=== PATIENT | male | born 1970 | race Caucasian/White ===

== ENCOUNTER 2016-11-23 16:44 | Observation (INO) | payer SELFPAY ==
[2016-11-23] MEDS ORDERED: Aspirin Low Dose CHEW TAB* 81 MG PO ONE (17:28)
[2016-11-23] MEDS ORDERED: NS 0.9% 1000 ML* 2,000 ML IV ONE (17:28)
[2016-11-23] MEDS ORDERED: Diltiazem IV* 5 MG/ML 5 ML VIAL (for loading dose/IV Push) (25 MG) IV PUSH ONE (17:28)
[2016-11-23] MEDS ORDERED: Diltiazem DRIP* 100 MG/100 ML ADDV.BAG IVPB ONE (17:28)
--- NOTE | 2016-11-23 18:11 | RAD ---
INDICATION: Tachycardia. COMPARISON: There are no prior studies available for comparison. TECHNIQUE: A portable view of the chest was obtained. FINDINGS: Cardiac and mediastinal contours appear to be within normal limits. The lungs are clear. No pleural effusion is seen. IMPRESSION: NO EVIDENCE FOR ACUTE DISEASE.
[2016-11-23] MEDS ORDERED: NS 0.9% 1000 ML* 1,000 ML IV ONE (18:23)
[2016-11-23 18:40] LABS: Hematocrit 49 % (42-52); Hemoglobin 16.7 g/dl (14.0-18.0); Mean Corpuscular HGB Conc 34 g/dl (31-36); Mean Corpuscular Hemoglobin 31 pg (27-31); Mean Corpuscular Volume 91 fL (80-94); Mean Platelet Volume 10 um3 (7.4-10.4); Red Blood Count 5.46 10^6/ul (4.0-5.4); Red Cell Distribution Width 14 % (10.5-15); White Blood Count 10.1 10^3/ul (3.5-10.8)
[2016-11-23 18:58] LABS: Albumin 4.2 g/dL (3.2-5.2); BUN/Creatinine Ratio 19.3 (8-20); Calcium 9.5 mg/dL (8.6-10.3); EGFR African American 93.7 (>60); EGFR Non-African American 72.8 (>60); Globulin 3.6 g/dL (2-4); Magnesium 2.2 mg/dL (1.9-2.7); Potassium 4.2 mmol/L (3.5-5.0); Total Bilirubin 0.7 mg/dL (0.2-1.0); Total Protein 7.8 g/dL (6.4-8.9)
[2016-11-23 18:59] LABS: Troponin I 0.01 ng/mL (<0.04)
[2016-11-23 19:23] LABS: TSH (Thyroid Stimulating Horm) 1.29 mcIU/mL (0.34-5.60)
[2016-11-23] MEDS ORDERED: Metoprolol Tartrate TAB* 25 MG PO ONE (19:38)
--- NOTE | 2016-11-23 19:57 | ED ---
Eliud Anton Billy, scribed for Brian Fleming MD on 11/23/16 at 1721 . Palpitations / Dysrhythmia - HPI Summary HPI Summary: Patient is a 46 year-old male coming to [facility] presenting with palpitations for the last 2 days. He was at rest during onset. Patient states that his heart feels fast and irregular. He also describes near-syncopal and lightheaded sensation. His symptoms appear to be worse with exertion. He also has had several intermittent, left anterior chest pain lasting several seconds. Denies any SOB. Two days ago, he had a democrat and consumed a large amount of alcohol. Denies any previous similar symptoms. Denies any recent illness or weight changes. - History of Current Complaint Chief Complaint: EDDysrhythmPalp Time Seen by Provider: 11/23/16 17:11 Hx Obtained From: Patient Onset/Duration: Gradual Onset, Lasting Days, Still Present Timing: Intermittent Episodes Lasting: Severity Initially: Moderate Severity Currently: Moderate Character: Fast, Irregular Aggravating: Exertion Alleviating: Rest Associated Signs & Symptoms: Lightheadedness, Chest Pain - Allergy/Home Medications Allergies/Adverse Reactions: Allergies Allergy/AdvReac Type Severity Reaction Status Date / Time Penicillins Allergy Unknown Verified 11/23/16 17:24 Reaction Details PMH/Surg Hx/FS Hx/Imm Hx Endocrine/Hematology History: Denies: Hx Diabetes Cardiovascular History: Reports: Other Cardiovascular Problems/Disorders - mitral valve prolapse Denies: Hx Coronary Artery Disease, Hx Hypercholesterolemia, Hx Hypertension Infectious Disease History: No Infectious Disease History: Denies: Traveled Outside the [place] in Last 30 Days - Family History Known Family History: Positive: Cardiac Disease - brother had NV at age 47 - Social History Occupation: Employed Full-time - [employer] Alcohol Use: Occasionally Substance Use Type: Reports: None Smoking Status (MU): Former Smoker Review of Systems Negative: Sore Throat, Ear Ache Positive: Palpitations, Chest Pain Negative: Shortness Of Breath, Cough Negative: Abdominal Pain, Vomiting, Diarrhea, Nausea Negative: Edema All Other Systems Reviewed And Are Negative: Yes Physical Exam - Summary Physical Exam Summary: The patient is well-nourished in no acute distress and in no acute pain. The skin is warm and skin color reflects adequate perfusion. Good skin turgor. Mildly diaphoretic. HEENT: The head is normocephalic and atraumatic. The pupils are equal and reactive. The conjunctivae are clear and without drainage. Nares are patent and without drainage. Mouth reveals moist mucous membranes and the throat is without erythema and exudate. The external ears are intact. The ear canals are patent and without drainage. The tympanic membranes are intact. Neck is supple with full range of motion and non-tender. There are no carotid bruits. There is no neck vein distension. Respiratory: Chest is non-tender. Lungs are clear to auscultation and breath sounds are symmetrical and equal. Cardiovascular: Heart is tachycardic and irregular. There is no murmur or rub auscultated. There is no peripheral edema and pulses are symmetrical and equal. Abdomen: The abdomen is soft and non-tender. There are normal bowel sounds heard in all four quadrants and there is no organomegaly palpated. Musculoskeletal: There is no back pain noted. Extremities are non-tender with full range of motion. There is good capillary refill. There is no peripheral edema or calf tenderness elicited. Neurological: Patient is alert and oriented to person, place and time. The patient has symmetrical motor strength in all four extremities. Psychiatric: The patient has an appropriate affect and does not exhibit any anxiety or depression. Triage Information Reviewed: Yes Vital Signs On Initial Exam: Initial Vitals Temp Pulse Resp BP Pulse Ox 97.2 F 93 20 143/99 97 11/23/16 16:46 11/23/16 16:46 11/23/16 16:46 11/23/16 16:46 11/23/16 16:46 Vital Signs Reviewed: Yes Diagnostics - Vital Signs Vital Signs Temp Pulse Resp BP Pulse Ox 11/23/16 16:46 97.2 F 93 20 143/99 97 - Laboratory Lab Results: Lab Results 11/23/16 11/23/16 11/23/16 Range/Units 18:28 18:28 18:28 WBC 10.1 (3.5-10.8) 10^3/ul RBC 5.46 H (4.0-5.4) 10^6/ul Hgb 16.7 (14.0-18.0) g/dl Hct 49 (42-52) % MCV 91 (80-94) fL MCH 31 (27-31) pg MCHC 34 (31-36) g/dl RDW 14 (10.5-15) % Plt Count 311 (150-450) 10^3/ul MPV 10 (7.4-10.4) um3 Neut % (Auto) 69.8 (38-83) % Lymph % (Auto) 18.8 L (25-47) % [place] % (Auto) 8.2 (1-9) % Eos % (Auto) 2.6 (0-6) % Baso % (Auto) 0.6 (0-2) % Absolute Neuts (auto) 7.1 (1.5-7.7) 10^3/ul Absolute Lymphs (auto) 1.9 (1.0-4.8) 10^3/ul Absolute Monos (auto) 0.8 (0-0.8) 10^3/ul Absolute Eos (auto) 0.3 (0-0.6) 10^3/ul Absolute Basos (auto) 0.1 (0-0.2) 10^3/ul Absolute Nucleated RBC 0 10^3/ul Nucleated RBC % 0 INR (Anticoag Therapy) 0.98 (0.89-1.11) Sodium 136 (133-145) mmol/L Potassium 4.2 (3.5-5.0) mmol/L Chloride 104 (101-111) mmol/L Carbon Dioxide 23 (22-32) mmol/L Anion Gap 9 (2-11) mmol/L BUN 21 (6-24) mg/dL Creatinine 1.09 (0.67-1.17) mg/dL Est GFR ( Amer) 93.7 (>60) Est GFR (Non-Af Amer) 72.8 (>60) BUN/Creatinine Ratio 19.3 (8-20) Glucose 96 (70-100) mg/dL Lactic Acid (0.5-2.0) mmol/L Calcium 9.5 (8.6-10.3) mg/dL Magnesium 2.2 (1.9-2.7) mg/dL Total Bilirubin 0.70 (0.2-1.0) mg/dL AST 28 (13-39) U/L ALT 38 (7-52) U/L Alkaline Phosphatase 61 (34-104) U/L Troponin I 0.01 (<0.04) ng/mL B-Natriuretic Peptide ( - 100) pg/mL Total Protein 7.8 (6.4-8.9) g/dL Albumin 4.2 (3.2-5.2) g/dL Globulin 3.6 (2-4) g/dL Albumin/Globulin Ratio 1.2 (1-3) TSH 1.29 (0.34-5.60) mcIU/mL 11/23/16 11/23/16 Range/Units 18:28 18:28 WBC (3.5-10.8) 10^3/ul RBC (4.0-5.4) 10^6/ul Hgb (14.0-18.0) g/dl Hct (42-52) % MCV (80-94) fL MCH (27-31) pg MCHC (31-36) g/dl RDW (10.5-15) % Plt Count (150-450) 10^3/ul MPV (7.4-10.4) um3 Neut % (Auto) (38-83) % Lymph % (Auto) (25-47) % [place] % (Auto) (1-9) % Eos % (Auto) (0-6) % Baso % (Auto) (0-2) % Absolute Neuts (auto) (1.5-7.7) 10^3/ul Absolute Lymphs (auto) (1.0-4.8) 10^3/ul Absolute Monos (auto) (0-0.8) 10^3/ul Absolute Eos (auto) (0-0.6) 10^3/ul Absolute Basos (auto) (0-0.2) 10^3/ul Absolute Nucleated RBC 10^3/ul Nucleated RBC % INR (Anticoag Therapy) (0.89-1.11) Sodium (133-145) mmol/L Potassium (3.5-5.0) mmol/L Chloride (101-111) mmol/L Carbon Dioxide (22-32) mmol/L Anion Gap (2-11) mmol/L BUN (6-24) mg/dL Creatinine (0.67-1.17) mg/dL Est GFR ( Amer) (>60) Est GFR (Non-Af Amer) (>60) BUN/Creatinine Ratio (8-20) Glucose (70-100) mg/dL Lactic Acid 1.2 (0.5-2.0) mmol/L Calcium (8.6-10.3) mg/dL Magnesium (1.9-2.7) mg/dL Total Bilirubin (0.2-1.0) mg/dL AST (13-39) U/L ALT (7-52) U/L Alkaline Phosphatase (34-104) U/L Troponin I (<0.04) ng/mL B-Natriuretic Peptide 245 H ( - 100) pg/mL Total Protein (6.4-8.9) g/dL Albumin (3.2-5.2) g/dL Globulin (2-4) g/dL Albumin/Globulin Ratio (1-3) TSH (0.34-5.60) mcIU/mL Result Diagrams: 11/23/16 18:28 11/23/16 18:28 Lab Statement: Any lab studies that have been ordered have been reviewed, and results considered in the medical decision making process. - Radiology CXR Xray Interpretation: No Acute Changes Radiology Interpretation Completed By: Radiologist - EKG 1655 EKG Interpretation: afib 134 bpm with RVR, nonspecific ST changes, normal axis 1822 EKG Interpretation: afib with ventricular rate of 75, nonspecific ST changes Re-Evaluation - Re-Evaluation First Eval Re-Evaluation Time: 18:20 Comment: Patient is hypotensive after diltiazem. He is pale, diaphoretic, and feels unwell. Second Eval Re-Evaluation Time: 18:47 Comment: BP improved after fluids. Third Eval Re-Evaluation Time: 19:20 Comment: BP has improved further but he remains in afib. Course/Dx - Course Assessment/Plan: 46 y/o male coming to [facility] presenting with palpitations. CXR shows no acute pathology. First EKG at 1655 shows afib 134 bpm with RVR, nonspecific ST changes, normal axis. Patient was given diltiazem in the ED, to which he had an adverse reaction. He became hypotensive, pale, and diaphoretic. He was given IV fluids which improved his blood pressure. Repeat EKG at 1822 shows afib with ventricular rate of 75, nonspecific ST changes. Case was discussed with Dr. Cali, who recommended admission to the hospitalist services. Case was then discussed with Dr. Young, hospitalist, who agreed to have hospitalist services see patient in the ED. - Diagnoses Differential Diagnosis/HQI/PQRI: Positive: Cardiomyopathy, Congestive Heart Failure, Coronary Artery Disease, Hypokalemia Provider Diagnoses: Atrial fibrillation with RVR - Physician Notifications Discussed Care Of Patient With: Dr. Cali (cardiology) @ 1923: recommends admission to hospitalist. Dr. Yuong (hospitalist) @ 1939: will see patient in the ED. - Critical Care Time Critical Care Time: 30-74 min Discharge - Discharge Plan Condition: Stable Disposition: ADMITTED TO [facility] Referrals: No Primary Care Phys,NOPCP [Primary Care Provider] - The documentation as recorded by the Eliud pleitez Billy accurately reflects the service I personally performed and the decisions made by me, Brian Fleming MD.
[2016-11-23] MEDS ORDERED: Acetaminophen TAB* 325 MG PO PRN (20:54)
[2016-11-23] MEDS ORDERED: Metoprolol Tartrate IV* 1 MG/ML 5 ML VIAL IV PRN (20:54)
[2016-11-23] MEDS ORDERED: Ondansetron INJ* 2 MG/ML VIAL IV PRN (20:54)
[2016-11-23] MEDS ORDERED: Dabigatran CAP(NF) 150 MG CAP PO SCH (21:00)
[2016-11-23] MEDS ORDERED: Metoprolol Tartrate IV* 1 MG/ML 5 ML VIAL ONE (21:01)
[2016-11-23] MEDS ORDERED: Metoprolol Tartrate IV* 1 MG/ML 5 ML VIAL IV ONE (21:01)
[2016-11-23] MEDS: Metoprolol Tartrate TAB* 25 MG PO SCH (23:46)
[2016-11-24] MEDS: CMCS: Dabigatran CAP(NF) 150 MG CAP PO SCH ×2 (00:12→10:44)
--- NOTE | 2016-11-24 00:13 | HP ---
HISTORY AND PHYSICAL: DATE OF ADMISSION: 11/23/16 PRIMARY CARE PROVIDER: None. ATTENDING PHYSICIAN WHILE IN THE HOSPITAL: Dr. John Young* (report dictated by Aldair Parsons NP). CONSULTING OB/GYN NURSE: Mimi Cali MD CHIEF COMPLAINT: 1. Fatigue. 2. Palpitations. HISTORY OF PRESENT ILLNESS: Mr. Sheffield is a 46-year-old male patient, previously healthy, he comes in today. He says the last couple of days, he has noticed that he has been really fatigued. He has been lying in bed, not feeling well. He is having palpitations off and on and then in further evaluation and in talking to the patient, he says he is not feeling the greatest in the last 6 months off and on. He says he may have had palpitations off and on, he is unsure. He came in today because he was loading up some firewood, and he bent forward and then he went to stand up, he felt like he almost is going to pass out and faint, so he came into the ER. He denied having any chest pain, denied feeling short of breath, denies any orthopnea or any weight gain or swelling of the lower extremities. He came in to the ER. He was evaluated. He was found to be in atrial fibrillation. Actually, he was given a small dose of diltiazem that dropped his pressure into the 60s and the hospitalist service was asked to evaluate for admission. PAST MEDICAL HISTORY: Denies. PAST SURGICAL HISTORY: He has had left hand surgery. HOME MEDICATIONS: Denied. ALLERGIES TO MEDICATIONS: Include PENICILLIN. FAMILY HISTORY: His maternal grandfather had an [place]. Mother's history is noncontributory. His father had a history of heart disease, possible valvular heart disease, and he has a brother that recently had a heart attack. SOCIAL HISTORY: He is a former smoker. He drinks on the weekend mostly. He works as a contractor. Surrogate decision maker is his stepfather. REVIEW OF SYSTEMS: There is no documented fever. He denied having any significant weight change. There was no double vision. He denies having any ear discharge. There is no rhinorrhea. No sore throat. No thyroid enlargement. Denies having any chest discomfort. There is palpitation. No orthopnea, no nocturnal dyspnea. There is no abdominal pain. No nausea, no vomiting, no dysuria, no frequency, no loss of consciousness. No pruritus and no skin ulcerations. Review of 14 systems completed, all others negative. PHYSICAL EXAMINATION GENERAL: At this time, Mr. Sheffield is a 46-year-old male patient, appears well- nourished, well-developed. VITAL SIGNS: Blood pressure 134/83 with a pulse now of 114, respirations 18, O2 sat 98%, temperature 97.2. When he came in, his heart rate was 150. HEENT: Head: Atraumatic, normocephalic. Eyes: EOMs are intact. Sclerae anicteric and not pale. Throat: Oral mucosa appears to be moist. No oropharyngeal erythema. NECK: Supple. LUNGS: Clear to auscultation bilaterally. No wheezes, rales, or rhonchi. HEART: Sounds S1, S2. Regular rate and rhythm. No murmurs, rubs, or gallops. ABDOMEN: Soft, flat, nontender. Bowel sounds present. EXTREMITIES: Pulses were 2+ throughout. He is able to move all 4 extremities with 5/5 strength. NEUROLOGICAL: The patient is awake, he is alert, he is oriented x3. Tongue midline. Casing Trimmer were equal. No gross focal deficits. SKIN: Grossly intact. DIAGNOSTIC STUDIES/LAB DATA: Labs today revealed WBC of 10.1, RBC of 5.46, hemoglobin 16.7, hematocrit 49, platelet count of 311. The INR was 0.98. The sodium was 136, potassium 4.2, chloride of 104, bicarb 24, BUN 21, creatinine 1.09. Glucose 96, lactic 1.2, calcium 9.5, mag 2.2. Total bili 0.7, AST 20, ALT 38, alk phos 61. Troponin 0.01, BNP at 245. His albumin is 4.2. TSH 1.29. He had an EKG obtained today, which showed atrial fibrillation at the rate of 134. No ST elevations or T-wave inversions. Old medical records were reviewed. Chest x-ray as well today, which showed no active disease. Old medical records reviewed. ASSESSMENT AND PLAN: Mr. Sheffield is a 46-year-old male patient, previously healthy , coming into the ER today with complaints of palpitations and fatigue and on evaluation found to be in atrial fibrillation with RVR. He will be admitted under observation status for: 1. Atrial fibrillation with RVR. At this point, it is unclear when this started. I think he would benefit from a CELESTE-guided cardioversion. I started him on Pradaxa for the reason being that it has a reversal agent. In addition to this, to prevent any thrombolic events and to prepare for cardioversion possibly in the morning. We will make him n.p.o. after midnight. Did consult Cardiology. I am going to try to control his rate with p.r.n. Lopressor and put him on standing Lopressor 25 b.i.d. and then we can increase his dose if his pressure tolerates. The patient did receive diltiazem and it dropped his pressure down into the 60s and he was symptomatic with this. So, I would like to avoid that drug. 2. Fluids, electrolytes, nutrition. He can have a healthy diet and n.p.o. after midnight. 3. DVT prophylaxis, he will be on Pradaxa. 10. Code status. Full code. TIME SPENT: Time spent on the admission 60 minutes, greater than half the time was spent [id number] with the patient obtaining my history and physical, the other half time was spent going over the plan of care with the patient and implementing my plan of care. I did discuss the plan of care with my attending, Dr. Young; he is in agreement. ALDAIR PARSONS NP CC: Mimi Cali MD* [id number]/[facility] #: [id number] JOANA
[2016-11-24 06:26] LABS: Hematocrit 45 % (42-52); Mean Corpuscular HGB Conc 34 g/dl (31-36); Mean Corpuscular Hemoglobin 31 pg (27-31); Mean Corpuscular Volume 91 fL (80-94); Mean Platelet Volume 10 um3 (7.4-10.4); Red Blood Count 4.88 10^6/ul (4.0-5.4); Red Cell Distribution Width 14 % (10.5-15); White Blood Count 9.3 10^3/ul (3.5-10.8)
[2016-11-24 06:41] LABS: Calcium 8.6 mg/dL (8.6-10.3); EGFR African American 103.5 (>60); EGFR Non-African American 80.4 (>60); Potassium 3.8 mmol/L (3.5-5.0)
[2016-11-24] MEDS: Metoprolol Tartrate TAB* 25 MG PO SCH (10:43)
--- NOTE | 2016-11-24 11:20 | CONSULT ---
Subjective Date of Service: 11/24/16 Interval History: Admission Date: 11/23/16 Provider/Service: Aldair Parsons CLINICAL PARTNER/Dr. Young/Hospitalist Date of consult PRIMARY CARE PROVIDER: None CHIEF COMPLAINT: 1. Fatigue. 2. Palpitations. Reason for consult: New onset symptomatic atrial fibrillation HISTORY OF PRESENT ILLNESS: Mr. Sheffield is a 46-year-old man no personal medical history does not see PCP regularly admitted with probable 1-w weeks of fatigue and palpitations although exact onset unclear. Yesterday when was carrying firewood he bent forward and then he went to stand up and had a presyncopal episode. He denies any CP, dyspnea, edema orthopnea or syncope. He was found in rapid atrial fibrillation was given IV diltiazem and BP lowered to 60's now held and rate controlled on oral metoprolol and remains symptomatic. Denies any drug or current tobacco use. Has own [employer] business. Drinks sporadically when friends come over not every day but when they do come would drink up to a case (24) lite beers. No known history of CHF, HTN, DM, CVA/TIA or vascular disease. Does have a family history of dyslipidemia, cholesterol panel pending. PAST MEDICAL HISTORY: Denies. PAST SURGICAL HISTORY: He has had left hand surgery. HOME MEDICATIONS: Denied. ALLERGIES TO MEDICATIONS: Include PENICILLIN. FAMILY HISTORY: His maternal grandfather had an [place]. Mother's history is noncontributory (she is present at bedside) His father had a history of heart disease, possible valvular heart disease, and he has a brother that recently had a heart attack in his 40's SOCIAL HISTORY: He is a former smoker. He works as a contractor. Surrogate decision maker is his stepfather. Medications Active Medications: Acetaminophen (Tylenol Tab*) 650 mg PO Q4H PRN PRN Reason: FEVER/PAIN Dabigatran (Pradaxa Cap(Nf)) 150 mg PO BID [facility] Last Admin: 11/24/16 10:44 Dose: 150 mg Metoprolol Tartrate (Lopressor Iv*) 5 mg IV Q6H PRN PRN Reason: HR > 120 SUSTAINED Metoprolol Tartrate (Lopressor Tab*) 25 mg PO BID [facility] Last Admin: 11/24/16 10:43 Dose: 25 mg Ondansetron HCl (Zofran Inj*) 4 mg IV Q6H PRN PRN Reason: NAUSEA Review of Systems - Measurements Intake and Output: Intake and Output Last 24 Hours 11/22/16 11/23/16 11/24/16 11/25/16 06:59 06:59 06:59 06:59 Intake Total 1240 Balance 1240 Weight 213 lb Intake: IV Fluids 1000 Oral 240 Other: # Bowel Movements 0 # Voids 0 - Review of Systems Constitutional Symptoms: Positive: Weakness, Fatigue Negative: Weight Gain, Weight Loss, Fever, Night Sweats, Unexplained Falls Dermatology: Negative: Rash, Skin Lesions, Skin Lumps HEENT: Negative: Change in Hearing, Vertigo, Sinus Problem Eyes: Negative: Change in Vision, Double Vision, Eye Pain Thyroid: Positive: Palpitations Negative: Heat Intolerance, Sweatiness, Tremor, Frequent Defecation, Constipation, Primary Hypothyroidism, Primary Hyperthyroidism, Weight Loss, Weight Gain, Change in Skin/Hair Pulmonary: Positive: Exercise Intolerance Negative: Cough, Sputum, Hemoptysis, Wheezing, COPD, Asthma Cardiology: Positive: Palpitations, Faintness Negative: Normal, Shortness of Breath, Swelling of Ankles, Peripheral Vascular Dis, Edema, Syncope, Claudication, Paroxysmal Nocturnal Dyspnea, Orthopnea Gastroenterology: Negative: Abdominal Pain, Nausea, Vomiting, Anorexia, Constipation, Diarrhea , Haematemesis, Melena Genital - Urinary: Negative: Dysuria, Hematuria, Nocturia Musculoskeletal: Negative: Joint Pain, Joint Stiffness, Arthritis, Osteoporosis, Low Back Pain , Sciatica, Joint Deformities Endocrinology: Negative: Thyroid Problems, Obesity, Diabetes, Hyperglycemia, Hypoglycemia, Calluses, Polydipsia, Polyuria Hematologic/Lymphatic: Negative: Easy Brusing, Hx Leukemia, Hx Lymphoma, Use of Anticoagulant, Use of Antiplatelet Drugs Neurology: Positive: Dizziness Negative: Headaches, Migraines, Change in Vision, Diplopia, Change in Balancing, Change in Coordination, Change in Memory, Change in Speech, Change in Sphincter Function, Change in Walking, Numbness\Paresthesiae, Hx of Stroke\ TIA, Hx Seizures Psychiatry: Negative: Depressed Mood, Adhedonia, Guilt Feelings, Tearfulness, Unusual Anxiety Allergic/Immunologic: Positive: Hx Anaphylaxis Negative: Hx HIV, Immunocompromise Review of Systems Statement: All other review of systems negative, unless stated above. Objective Vital Signs: Temp Pulse Resp BP Pulse Ox 98.1 F 72 16 112/78 94 11/24/16 08:05 03/17/17 08:05 11/24/16 08:05 11/24/16 08:05 11/24/16 08:05 Appearance: nad, pleasant Ears/Nose/Mouth/Throat: Clear Oropharnyx, Mucous Membranes Moist Neck: NL Appearance and Movements; NL JVP Respiratory: Symmetrical Chest Expansion and Respiratory Effort, Clear to Auscultation Cardiovascular: No Edema, - - irregularly irregular, no significant murmur Abdominal: NL Sounds; No Tenderness; No Distention Extremities: No Edema Skin: No Rash or Ulcers Neurological: Alert and Oriented x 3 Laboratory Results: 11/24/16 05:00 11/24/16 05:00 INR (Anticoag Therapy) 1.08 (0.89-1.11) 11/24/16 05:00 Total Bilirubin 0.70 mg/dL (0.2-1.0) 11/23/16 18:28 AST 28 U/L (13-39) 11/23/16 18:28 ALT 38 U/L (7-52) 11/23/16 18:28 Alkaline Phosphatase 61 U/L (34-104) 11/23/16 18:28 B-Natriuretic Peptide 245 pg/mL (-100) H 11/23/16 18:28 Total Protein 7.8 g/dL (6.4-8.9) 11/23/16 18:28 Albumin 4.2 g/dL (3.2-5.2) 11/23/16 18:28 Globulin 3.6 g/dL (2-4) 11/23/16 18:28 Albumin/Globulin Ratio 1.2 (1-3) 11/23/16 18:28 TSH 1.29 mcIU/mL (0.34-5.60) 11/23/16 18:28 mg 2.2 11/23/16 18:28 Troponin I 0.01 EKG Data: EKG 1 11/23/2016: Rapid Afib rate 134 bpm, non-specific st/t changes EKG 2 11/23/2016: Rate controlled atrial fibrillation Assessment/Plan Mr. 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 We discussed risk of anticoagulation including but not limited to life threatening hemorrhage from gastrointestinal bleeding, trauma and intracranial bleeding - Lipid panel pending - Plan for CELESTE/CV today, risks benefits and alternatives discussed and patient would like to proceed - Will arrange cardiology follow up Thank you for allowing me to participate in the cardiovascular care of this patient. Please do not hesitate to contact me with questions or concerns.
[2016-11-24 11:26] LABS: HDL Cholesterol 34.9 mg/dL
[2016-11-24] MEDS ORDERED: Naloxone* 0.4 MG/ML 1 ML VIAL ONE (11:37)
[2016-11-24] MEDS ORDERED: Flumazenil* 0.1 MG/ML 5 ML MDV ONE (11:37)
[2016-11-24] MEDS ORDERED: Lidocaine 2% VISCOUS* 15 ML UDC ONE ×2 (11:37→11:38)
[2016-11-24] MEDS ORDERED: fentaNYL* 50 MCG/ML 2 ML VIAL (100 MCG VIAL) ONE ×2 (11:37→12:15)
[2016-11-24] MEDS ORDERED: Midazolam* 1 MG/ML 5 ML VIAL (5 MG) ONE (11:37)
[2016-11-24] MEDS ORDERED: diPHENhydraMINE IV* 50 MG/ML 1 ml VIAL (BENADRYL) ONE (12:17)
--- NOTE | 2016-11-24 13:05 | PROCNOTE ---
Cardiology Procedure Note 11/24/2016 CELESTE/Cardioversion Risks, benefits alternatives discussed and patient wished to proceed Sedation achieved with IV versed, fentanyl and benadryl, see medication records for dosing CELESTE no LA/MURALI thrombus Patient had successful external electrical cardioversion with 120 J sync from atrial fibrillation to sinus rhythm No complications - Continue metoprolol and pradaxa at discharge - Atorvastatin 80 mg PO daily started for severely elevated LDL, continue at discharge - Ok to d/c later today if remains clinically stable - Will arrange cardiology follow up
--- NOTE | 2016-11-24 13:35 | TEE ---
Patient: JACQUI LAM [facility] Rec#: [id number] : 1970 Date: 11/24/2016 Age: 46y Height: 185.42 cm / 73.0 in Weight: 96.62 kg / 213.0 lbs Sex: M BSA: 2.21 Room#: 453 Admit Date#: 11/23/2016 Type: Inpatient Referring: Aldair Parsons NP Performing: Rangel Ramos DO Reading: Ranegl Ramos DO Supervisor Kennel: Sandy Monae NADINE Supervisor Kennel: Kalee Robert Nurse: DAYSI Beal Alicia Transesophageal Echocardiogram Indication: A-Fib BP: 108/62 HR: 92 Rhythm: A-Fib Findings History: ETOH use, former smoker. Technical Comments: The study quality is good. Left Ventricle: The left ventricular chamber size is normal. There is normal left ventricular systolic function. The estimated ejection fraction is 55-60%. Left Atrium: The left atrial chamber size is normal. No thrombus is visualized within the left atrium. There is no thrombus visualized in the left atrial appendage. Right Ventricle: The right ventricular cavity size is normal. The right ventricular global systolic function is low normal. Right Atrium: The right atrium is mildly dilated. A patent foramen ovale is not demonstrated by color Doppler. Aortic Valve: The aortic valve is trileaflet. There is no evidence of aortic regurgitation.and the aortic valve appears to open normal Mitral Valve: The mitral valve appears normal in structure and function. There is trace to mild mitral regurgitation. There is no evidence of mitral stenosis. Tricuspid Valve: The tricuspid valve leaflets are normal. There is trace tricuspid regurgitation. Unable to estimate the right ventricular systolic pressure. Pulmonic Valve: The pulmonic valve appears normal. There is no evidence of pulmonic regurgitation.The pulmonic valve appears to open normally Pericardium: There is no significant pericardial effusion. Aorta: There is no dilatation of the ascending aorta. There is mild dilatation of the aortic root.There is intimal thickening of the descending aorta Pulmonary Artery: The main pulmonary artery appears normal. Venous: The bicaval view was obtained and appears normal. The pulmonary veins appear normal in size. 1 of 4 visualized. The flow pattern of the pulmonary veins appear normal. CELESTE Procedures: History and physical as well as labs were reviewed. The patient was in a fasting state. Risks and benefits of the procedure, including alternatives, were discussed and written informed consent was obtained. The patient and/or their health care technical service representative expressed understanding of the procedure, risks and benefits. Baseline and continuous monitoring of blood pressure, heart rate, pulse oximetry and heart rhythm was performed throughout the procedure. The appropriate time-out procedure was performed as per [facility] protocol. The patient was placed in the left lateral decubitus position. The patient's posterior pharynx was anesthetized with 20ml of 2% viscous lidocaine. The patient received IV Midazolam with a total dose of 10 mg. The patient received IV Fentanyl with a total dose of 100 mcg and 25 mg of IV Benadryl. An oral bite block was inserted for protection of oral dentition. The multiplane transesophageal echocardiogram probe was inserted through the posterior oropharynx and advanced into the esophagus without difficulty. Multiple 2D images were obtained of the heart and its related structures. Color flow Doppler was used for evaluation. Spectral Doppler was also used. The atrial septum was interrogated with color flow Doppler. At the conclusion of the procedure the probe was removed with continuous suction without complications. The patient tolerated the procedure with no apparent complications. Conclusions The left ventricular chamber size is normal. There is normal left ventricular systolic function. The estimated ejection fraction is 55-60%. The left atrial chamber size is normal. No thrombus is visualized within the left atrium or left atrial appendage. The right ventricular cavity size is normal. The right ventricular global systolic function is low normal. The right atrium is mildly dilated. No significant valvular abnormalities noted. There is mild unindexed dilation of the aortic root. Procedure followed by successful electrical cardioversion from atrial fibrillation to sinus rhythm. No prior studies available for comparison at time of interpretation. Measurements Name Value Normal Range Aortic Annulus 2.7 cm (1.4 - 2.6) Ao root diameter (2D) 4.1 cm (2.1 - 3.5) Ascending Ao 3.4 cm (2.1 - 3.4) Name Value Normal Range MV E-wave Vmax 0.5 m/sec - MV deceleration time 200 msec - Name Value Normal Range TR Vmax 1.7 m/sec - TR peak gradient 11.4 mmHg -
[2016-11-24 13:44] VITALS: BP 101/70
[2016-11-24] MEDS ORDERED: Atorvastatin* 80 MG TAB PO SCH (17:00)
--- NOTE | 2016-11-26 14:17 | PN ---
Hospitalist Progress Note . HOSPITALIST DISCHARGE NOTE: See dc instructions and summary by me. Patient stable for dc dc instructions reviewed with the patient at the bedside. DC patient home today.
--- NOTE | 2016-11-27 04:54 | DS ---
DISCHARGE SUMMARY: DATE OF ADMISSION: 11/23/16 DATE OF DISCHARGE: 11/24/16 STATUS DURING HOSPITALIZATION: Observation. PRIMARY CARE PROVIDER: None. CONSULTING RIVET TESTER: Dr. Rangel Ramos, and he will be followed up by Dr. Ramos. PRINCIPAL DISCHARGE DIAGNOSIS: Atrial fibrillation with rapid ventricular response secondary to alcohol use, status post transesophageal echocardiogram- guided cardioversion with confucianist of normal sinus rhythm. SECONDARY DIAGNOSIS: None. DISCHARGE MEDICATION REGIMEN: 1. Eliquis 5 mg by mouth twice daily. 2. Lipitor 80 mg by mouth daily. 3. Metoprolol 25 mg by mouth twice daily. HISTORY OF PRESENT ILLNESS AND HOSPITAL COURSE: Please see the H and P by Aldair Parsons NP, under the supervision of Dr. John Young. In brief, Mr. Sheffield is a 46-year-old gentleman, previously healthy, who reported to the emergency room with fatigue over the past few days. The patient has intermittently not felt well over the past 6 months, with palpitations during that time. The patient came in after he was loading some firewood and went to stand up and felt like he was nearly going to pass out. He did not fully lose consciousness , but he was found to be in atrial fibrillation and was well over 100 beats per minute and in response to diltiazem, dropped his pressure down into the 60s. The patient was evaluated by Cardiology, who agreed to take the patient to cardioversion by CELESTE guidance. The patient was started initially on Pradaxa. He was also started on Lopressor 25 twice daily and did well with that. The patient underwent the TTE by Dr. Rangel Ramos and there was no evidence of clot. He had structurally normal heart and he was cardioverted and subsequently maintained normal sinus rhythm. The patient awoke and was discharged in stable condition. He was given a 30-day supply of Eliquis from the [facility], but his two other medications were sent to [facility] in [facility]. The patient does not have a primary care physician and has not had many medical problems and I am encouraging him to establish new relationship, but over the next month, he can follow up with Dr. Rangel Ramos for his atrial fibrillation and cardioversion followup. TIME SPENT: Total time taken to discharge Mr. Sheffield was 45 minutes; greater than half the time was spent going over the discharge instructions and arranging his Eliquis prescription as described above. CONDITION: Stable. [id number] #: [id number] MTDD
== END 2016-11-24 16:27 | disposition home or self-care (01) ==
LOC: ED 16:44 → INTOOBSV 20:50 → MEDTELE 20:50
PROVIDERS: ADMIT Internal Medicine; ATTEND Internal Medicine
DX: I48.91 Unspecified atrial fibrillation (principal); F10.99 Alcohol use, unspecified with unspecified alcohol-induced disorder; Z88.0 Allergy status to penicillin; Z82.49 Family history of ischemic heart disease and other diseases of the circulatory system; Z87.891 Personal history of nicotine dependence
CPT/HCPCS: 36415; 71010; 80048; 80053; 80061; 83605; 83735; 83880; 84443; 84484; 85025; 85610; 92960; 93005; 93312; 93325; 96374; 96375; 99285; A9270-GY; G0378; J1200; J2250; J2310; J3010

== ENCOUNTER 2019-03-13 15:44 | Emergency (ER) | payer OTHER ==
[2019-03-13] MEDS ORDERED: NS 0.9% 1000 ML** 2,000 ML IV ONE (15:58)
--- NOTE | 2019-03-13 16:01 | ED ---
Palpitations / Dysrhythmia - HPI Summary HPI Summary: Patient is a 48 y/o M w/ Hx of afib who presents to ED with complaints of palpitations. He states that palpitations onset today at 1000 while he was playing with his dog. SOB, dizziness, chest pain, neck pain, N/V, diaphoresis, urinary Sx, calf pain are denied. Patient reports that he had an episode of afib two years ago which required a cardioversion. He notes that during his last episode, he experienced dizziness with his palpitations and notes that prior palpitations were more "sporadic". Patient was followed by Dr. Ramos, cardiology, after the episode and reports no subsequent issues. He claims to not be on any blood thinners. Hx of HTN but he states that he has not been taking his BP meds for over a year as Dr. Ramos stated that he did need to take them. Patient took two ASA prior to arrival. He denies Hx of blood clots. No daily medications noted. PSHx of umbilical hernia surgery, left hand surgery. FMHx of cardiac disease. , who is present in the room, states that the patient consumed a lot of alcohol last night. However, the patient denies this. On triage, pain is rated 0/10, nothing is noted to aggravate/alleviate Sx. Home medications and allergies are reviewed. Home Medications NK [No Home Medications Reported] 03/13/19 [History Confirmed 03/13/19] Allergies Allergy/AdvReac Type Severity Reaction Status Date / Time diltiazem [From Cardizem] Allergy Anaphylatic Verified 03/13/19 19:16 Shock Penicillins Allergy Unknown Verified 03/13/19 16:55 Reaction Details - History of Current Complaint Chief Complaint: EDDysrhythmPalp Time Seen by Provider: 03/13/19 15:49 Hx Obtained From: Patient Onset/Duration: Lasting Hours, Still Present Timing: Constant Severity Currently: None Character: Irregular, Pounding Aggravating: Nothing Alleviating: Nothing Associated Signs & Symptoms: Negative - Allergy/Home Medications Allergies/Adverse Reactions: Allergies Allergy/AdvReac Type Severity Reaction Status Date / Time diltiazem [From Cardizem] Allergy Anaphylatic Verified 03/13/19 19:16 Shock Penicillins Allergy Unknown Verified 03/13/19 16:55 Reaction Details PMH/Surg Hx/FS Hx/Imm Hx Previously Healthy: No Endocrine/Hematology History: Denies: Hx Diabetes, Hx Thyroid Disease Cardiovascular History: Reports: Hx Atrial Fibrillation, Hx Hypercholesterolemia , Hx Hypertension, Hx Valvular Heart Disease - as a child younger than 10 years old mitral valve prolapse Denies: Hx Coronary Artery Disease, Hx Peripheral Vascular Disease GI History: Reports: Hx Hiatal Hernia - had surgery Musculoskeletal History: Denies: Hx Arthritis, Hx Osteoporosis Sensory History: Denies: Hx Contacts or Glasses, Hx Hearing Aid Opthamlomology History: Denies: Hx Contacts or Glasses Neurological History: Denies: Hx Headaches, Hx Seizures, Hx Transient Ischemic Attacks (TIA) - Cancer History Hx Chemotherapy: No - Surgical History Surgical History: Yes Surgery Procedure, Year, and Place: I & D to remove metal sliver to left hand- 8 years ago. stitches left thumb-7-8 years ago. hiatal hernia surgery many years ago Hx Anesthesia Reactions: Yes - can become combative Infectious Disease History: No Infectious Disease History: Denies: Traveled Outside the [place] in Last 30 Days - Family History Known Family History: Positive: Cardiac Disease - brother had DC at age 47 - Social History Lives: With Family Alcohol Use: Occasionally Substance Use Type: Reports: None Smoking Status (MU): Former Smoker Amount Used/How Often: smoked for 10 years 1/2 ppd- social smoker Review of Systems Negative: Skin Diaphoresis Positive: Palpitations. Negative: Chest Pain Negative: Shortness Of Breath Negative: Vomiting, Nausea Genitourinary: Other - negative - urinary Sx Musculoskeletal: Other - negative - neck pain, calf pain Skin: Negative Neurological: Other - negative - dizziness Psychological: Normal All Other Systems Reviewed And Are Negative: Yes Physical Exam - Summary Physical Exam Summary: Appearance: Well-appearing, no pain distress, well-nourished Skin: Warm, color reflects adequate perfusion, dry Head: Normal Head/Face inspection, atraumatic Eyes: Conjunctiva clear ENT: Normal inspection Neck: Supple, no nodes, no JVD Respiratory: Lungs clear, normal breath sounds, no respiratory distress Cardio: irregularly irregular, No murmur, pulses normal, brisk capillary refill Abdomen: Soft, nontender Bowel sounds: Present Musculoskeletal: Strength Intact/ROM intact, no calf tenderness, no edema. Psychological: Normal Neuro: Alert, muscle tone normal, no focal deficit Triage Information Reviewed: Yes Vital Signs On Initial Exam: Initial Vitals Temp Pulse Resp BP Pulse Ox 97.0 F 134 20 118/97 97 03/13/19 15:50 03/13/19 15:50 03/13/19 15:50 03/13/19 15:50 03/13/19 15:50 Vital Signs Reviewed: Yes Diagnostics - Vital Signs Vital Signs Temp Pulse Resp BP Pulse Ox 03/13/19 15:50 97.0 F 134 20 118/97 97 - Laboratory Result Diagrams: 03/13/19 15:59 03/13/19 15:59 Lab Statement: Any lab studies that have been ordered have been reviewed, and results considered in the medical decision making process. - Radiology CXR Radiology Interpretation Completed By: Radiologist Summary of Radiographic Findings: CXR IMPRESSION: NO ACTIVE CARDIOPULMONARY DISEASE. THIS REPORT WAS REVIEWED BY DR. ROGERS. - EKG 1547 Cardiac Rate: Other Rate - rate of 134 BPM EKG Rhythm: Atrial Fibrillation ST Segment: Non-Specific Ectopy: None EKG Comparison: Other - c/w 11/25/16 pt is now in SR Re-Evaluation - Re-Evaluation First Eval Re-Evaluation Time: 19:05 Change: Improved Comment: After 2L NS rhythm is still afib. It has slowed from 134 to 116, and BP is stable. pt still has no CP. Is recalling allergy to one of the meds to treat afib. Reviewed prior records. Pt had adverse reaction to diltiazem with hypotension. Chart is updated to reflect allergy to PCN and diltiazem. Dr. Casey will assume care, and order metoprolol. Course/Dx - Course Course Of Treatment: Patient is a 48 y/o M w/ Hx of afib who presents to ED with complaints of palpitations. He states that palpitations onset today at 1000 while he was playing with his dog. No other Sx reported. Patient reports that he had an episode of afib two years ago which required a cardioversion. Patient was followed by Dr. Ramos, cardiology, after the episode and reports no subsequent issues. He claims to not be on any blood thinners. 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 No daily medications noted. , who is present in the room, states that the patient consumed a lot of alcohol last night. On Physical exam, patinet is noted to be irregularly irregular. EKG showed afib with rate of 134 BPM. CXR IMPRESSION: NO ACTIVE CARDIOPULMONARY DISEASE. Labs showed creatinine 1.23, glucose 126, lactic acid 0.8, CK-MB 2.2, TSH 0.59, first trop 0, second trop 0.01. During ED course, patient received 2L fluids. Lopressor 5 mg IV ordered by Dr. Casey at change of shift. Patient is signed out to Dr. Casey at 190 shift change pending patient's response to medications and fluids and consult with Dr. Ramos. - Diagnoses Differential Diagnosis/HQI/PQRI: Positive: Congestive Heart Failure, Coronary Artery Disease, Pulmonary Embolism, Other - atrial fibrillation Provider Diagnoses: Paroxysmal atrial fibrillation with RVR Discharge - Sign-Out/Discharge Documenting (check all that apply): Sign-Out Patient Signing out patient TO: Vazquez Casey - 189903/13/19 pending response to meds, fluids and consult with Dr. Ramos Patient Received Moderate/Deep Sedation with Procedure: No - Discharge Plan Condition: Good Disposition: HOME Prescriptions: Apixaban* [Eliquis*] 5 mg PO BID #60 tab Patient Education Materials: A-fib (Atrial Fibrillation) (ED) Referrals: Care [facility] [Outside] - 3 Days (call for appt) Additional Instructions: If you still have an irregular heartbeat, come back around 5:30 am and we will plan on cardioverting you. Do not have anything to eat or drink after 10 pm tonight. - Billing Disposition and Condition Condition: GOOD Disposition: Home - Attestation Statements Document Initiated by Martita: Yes Documenting Scribe: SHAJI EASON Provider For Whom Martita is Documenting (Include Credential): JONAS ROGERS MD Scribe Attestation: SHAJI Anton, scribed for JONAS ROGERS MD on 03/14/19 at 0257. Scribe Documentation Reviewed: Yes Provider Attestation: The documentation as recorded by the SHAJI pleitez accurately reflects the service I personally performed and the decisions made by me, JONAS ROGERS MD Status of Scribe Document: Viewed
[2019-03-13 16:08] LABS: ABS Eosinophils 0.1 10^3/ul (0-0.6); ABS Lymphocytes 1.6 10^3/ul (1.0-4.8); ABS Monocytes 0.6 10^3/ul (0-0.8); ABS Neutrophils 6.1 10^3/ul (1.5-7.7); Eosinophil % 1.8 %; Hematocrit 46 % (42-52); Hemoglobin 15.9 g/dL (14.0-18.0); Lymphocyte % 18.7 %; Mean Corpuscular HGB Conc 35 g/dL (31-36); Mean Corpuscular Hemoglobin 31 pg (27-31); Mean Corpuscular Volume 91 fL (80-94); Mean Platelet Volume 9.4 fL (7.4-10.4); Platelet Count 281 10^3/uL (150-450); Red Blood Count 5.05 10^6 /uL (4.18-5.48); Red Cell Distribution Width 14 % (10-15); White Blood Count 8.5 10^3/uL (3.5-10.8)
[2019-03-13 16:16] LABS: Activated Partial Thrombo Time 34.5 seconds (26.0-38.0); INR 0.95 (0.82-1.09)
[2019-03-13 16:24] LABS: Albumin 4.2 g/dL (3.2-5.2); Albumin/Globulin Ratio 1.4 (1-3); BUN/Creatinine Ratio 17.9 (8-20); Calcium 9.4 mg/dL (8.6-10.3); EGFR Non-African American 62.8 (>60); Magnesium 2.3 mg/dL (1.9-2.7); Potassium 4.2 mmol/L (3.5-5.0); Total Bilirubin 0.3 mg/dL (0.2-1.0); Total Protein 7.2 g/dL (6.4-8.9)
[2019-03-13 16:29] LABS: CKMB ng/mL 2.2 ng/mL (0.6-6.3)
[2019-03-13 17:50] LABS: TSH (Thyroid Stimulating Horm) 0.59 mcIU/mL (0.34-5.60)
[2019-03-13] MEDS ORDERED: Diltiazem IV push/loading dose 5 MG/ML 5 ML vial (25 mg) IV SLOW PU ONE (19:07)
[2019-03-13] MEDS ORDERED: Metoprolol Tartrate IV* 1 MG/ML 5 ML VIAL IV ONE (19:22)
--- NOTE | 2019-03-13 19:58 | ED ---
Progress - Progress Note Progress Note: This patient was signed out from Dr. Mina to Dr. Casey upon shift change at 19:00 03/13/19 pending lab work, consult with Dr. Ramos and response to medication. Blood work and chemistries obtained and are WNL. Upon re-eval the patient is generally feeling well but remains in atrial fibrillation after a dose of Metoprolol. Discussed case with Dr. Ramos, product manager, who is agreeable with cardioversion and recommends Eliquis for one month. The patient will be discharged with a prescription for Eliquis. He was instructed to come back around 5:30 am and for cardioverting if his heartbeat was still irregular. He is agreeable with this plan. Re-Evaluation - Re-Evaluation First Eval Re-Evaluation Time: 19:05 Change: Unchanged Comment: Pt is generally feeling well but remains in atrial fibrillation after a dose of Metoprolol. Course/Dx - Course Course Of Treatment: This patient was signed out from Dr. Mina to Dr. Casey upon shift change at 19:00 03/13/19 pending lab work, consult with Dr. Ramos and response to medication. Blood work and chemistries obtained and are WNL. Upon re-eval the patient is generally feeling well but remains in atrial fibrillation after a dose of Metoprolol. Discussed case with Dr. Ramos, product manager, who is agreeable with cardioversion and recommends Eliquis for one month. The patient will be discharged with a prescription for Eliquis. He was instructed to come back around 5:30 am and for cardioverting if his heartbeat was still irregular. He is agreeable with this plan. - Diagnoses Provider Diagnoses: Paroxysmal atrial fibrillation with RVR - Provider Notifications Discussed Care Of Patient With: Rangel Ramos Time Discussed With Above Provider: 19:59 Instructed by Provider To: Other - agreeable with cardioversion. Recommends Eliquis for one month. Discharge - Sign-Out/Discharge Documenting (check all that apply): Patient Departure - DC Patient Received Moderate/Deep Sedation with Procedure: No - Discharge Plan Condition: Good Disposition: HOME Prescriptions: Apixaban* [Eliquis*] 5 mg PO BID #60 tab Patient Education Materials: A-fib (Atrial Fibrillation) (ED) Referrals: Care [facility] [Outside] - 3 Days (call for appt) Additional Instructions: If you still have an irregular heartbeat, come back around 5:30 am and we will plan on cardioverting you. Do not have anything to eat or drink after 10 pm tonight. - Billing Disposition and Condition Condition: GOOD Disposition: Home - Attestation Statements Document Initiated by Martita: Yes Documenting Scribe: Bj Oneal Provider For Whom Martita is Documenting (Include Credential): Vazquez Casey MD Scribe Attestation: I, Bj Oneal, scribed for Vazquez Casey MD on 03/14/19 at 0328. Scribe Documentation Reviewed: Yes Provider Attestation: The documentation as recorded by the Bj pleitez accurately reflects the service I personally performed and the decisions made by me, Vazquez Casey MD Status of Scribarmando Document: Viewed
[2019-03-13] MEDS ORDERED: Apixaban* 5 MG TAB PO ONE (20:07)
[2019-03-13 20:53] VITALS: BP 130/80
== END 2019-03-13 20:57 | disposition home or self-care (01) ==
LOC: ED 15:44
DX: I48.0 Paroxysmal atrial fibrillation (principal); Z88.0 Allergy status to penicillin; I10 Essential (primary) hypertension; Z87.891 Personal history of nicotine dependence; R00.2 Palpitations
CPT/HCPCS: 36415; 71046; 80053; 82550; 82553; 83605; 83735; 83880; 84443; 84484; 85025; 85610; 85730; 93005; 96361; 96374; 99283; J3490

== ENCOUNTER 2019-09-29 08:24 | Emergency (ER) | payer OTHER ==
[2019-09-29] MEDS ORDERED: NS 0.9% 1000 ML** 1,000 ML IV ONE (08:41)
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
[2019-09-29 08:59] LABS: ABS Eosinophils 0.2 10^3/ul (0-0.6); ABS Lymphocytes 1.6 10^3/ul (1.0-4.8); ABS Monocytes 0.5 10^3/ul (0-0.8); ABS Neutrophils 4.8 10^3/ul (1.5-7.7); Eosinophil % 2.7 %; Hematocrit 47 % (42-52); Lymphocyte % 22.1 %; Mean Corpuscular HGB Conc 34 g/dL (31-36); Mean Corpuscular Hemoglobin 31 pg (27-31); Mean Corpuscular Volume 91 fL (80-94); Mean Platelet Volume 9.5 fL (7.4-10.4); Nucleated Red Blood Cells % 0.1; Platelet Count 263 10^3/uL (150-450); Red Blood Count 5.13 10^6 /uL (4.18-5.48); Red Cell Distribution Width 13 % (10-15)
--- OUTSIDE RECORDS SUMMARY | 2019-09-29 09:03 | XMS REPORT | Continuity of Care Document ---
:1970 External Reference #:[id number] Author Name Thong Shah MD (transmitted by agent of provider Kristi Eagle) Address [address] [place] [address] Care Team Providers Name Role Phone Timothy Denise MD - Family Care Team Information Hide Inspector Medicine Problems Active Problems Provider Date Hyperlipidemia Rangel Ramos DO FACC Onset: 12/14/2016 Paroxysmal atrial fibrillation Rangel Ramos DO FACReina Onset: 12/14/2016 Difficulty breathing Yanna Ruth MD Onset: 05/09/2017 Social History Type Date Description Comments Sex Unknown Tobacco Use Start: Unknown End: Former Cigarette Smoker Unknown Smoking Status Reviewed: 08/01/19 Former Cigarette Smoker ETOH Use Rarely consumes wine Social. Binges Tobacco Use Start: Unknown End: Patient is a former Unknown smoker Recreational Drug Use Denies Drug Use Exercise Type/Frequency Active at work Allergies, Adverse Reactions, Alerts Active Allergies Reaction Severity Comments Date Penicillin 12/14/2016 Cardizem Unconsciousness Severe 08/01/2019 Medications Active Medications SIG Qnty Indications Ordering Provider Date Centrum Silver 50+Men 1 by mouth every Unknown day 50+Men Tablets History Medications No Active Medications Unknown 08/01/2019 - 08/01/2019 Immunizations Description No Information Available Vital Signs Date Vital Result Comment 08/01/2019 11:24am Height 72 inches 6'0" Weight 225.00 lb Heart Rate 69 /min BP Systolic 135 mmHg BP Diastolic 86 mmHg O2 % BldC Oximetry 96 % BMI (Body Mass Index) 30.5 kg/m2 03/07/2018 9:57am Height 72 inches 6'0" Weight 221.00 lb No shoes Heart Rate 58 /min BP Systolic Sitting 110 mmHg Lue reg cuff BP Diastolic Sitting 76 mmHg Lue reg cuff BP Systolic Standing 118 mmHg Lue reg cuff BP Diastolic Standing 82 mmHg Lue reg cuff Respiratory Rate 16 /min BMI (Body Mass Index) 30.0 kg/m2 Results Test Acquired Date Facility Test Result H/L Range Note Laboratory test 03/13/2019 [facility] [place] Troponin-I 0.01 ng/mL < 0.[address] (TnI) [place], [place] [id number] [phone] CBC Auto Diff 03/13/2019 [facility] [place] White 8.5 10^3/uL Normal 3.5-10.[address] [place] [address] Count [phone] Red Blood Count 5.05 10^6/uL Normal 4.18-5.48 Hemoglobin 15.9 g/dL Normal 14.0-18.0 Hematocrit 46 % Normal 42-52 Mean Corpuscular Volume 91 fL Normal 80-94 Mean Corpuscular Hemoglobin 31 pg Normal 27-31 Mean Corpuscular HGB Conc 35 g/dL Normal 31-36 Red Cell Distribution Width 14 % Normal 10-15 Platelet Count 281 10^3/uL Normal 150-450 Mean Platelet Volume 9.4 fL Normal 7.4-10.4 Abs Neutrophils 6.1 10^3/uL Normal 1.5-7.7 Abs Lymphocytes 1.6 10^3/uL Normal 1.0-4.8 Abs Monocytes 0.6 10^3/uL Normal 0-0.8 Abs Eosinophils 0.1 10^3/uL Normal 0-0.6 Abs Basophils 0.0 10^3/uL Normal 0-0.2 Abs Nucleated RBC 0.0 10^3/uL Granulocyte % 72.0 % Lymphocyte % 18.7 % Monocyte % 7.1 % Eosinophil % 1.8 % Basophil % 0.4 % Nucleated Red Blood Cells % 0.0 Inr/Protime 03/13/2019 [facility] [place] Inr 0.95 Normal 0.82-1.[address] [place] [address] [phone] Laboratory test 03/13/2019 [facility] [place] Partial 34.5 Normal 26.0 -38.[address] [place] [address] Time PTT [phone] B-Type Natriuretic Peptide BNP 26 pg/mL <=100 Lactic Acid 0.8 mmol/L Normal 0.5-2.0 3 Comp Metabolic 03/13/2019 [facility] [place] Sodium 140 mmol/L Normal 135-[address] [place] [address] [phone] Potassium 4.2 mmol/L Normal 3.5-5.0 Chloride 106 mmol/L Normal 101-111 Co2 Carbon Dioxide 27 mmol/L Normal 22-32 Anion Gap 7 mmol/L Normal 2-11 Glucose 126 mg/dL High 70-100 Blood Urea Nitrogen 22 mg/dL Normal 6-24 Creatinine 1.23 mg/dL High 0.67-1.17 BUN/Creatinine Ratio 17.9 Normal 8-20 Calcium 9.4 mg/dL Normal 8.6-10.3 Total Protein 7.2 g/dL Normal 6.4-8.9 Albumin 4.2 g/dL Normal 3.2-5.2 Globulin 3.0 g/dL Normal 2-4 Albumin/Globulin Ratio 1.4 Normal 1-3 Total Bilirubin 0.30 mg/dL Normal 0.2-1.0 Alkaline Phosphatase 66 U/L Normal 34-104 Alt 24 U/L Normal 7-52 Ast 19 U/L Normal 13-39 Egfr Non- 62.8 >60 Egfr 76.0 >60 4 Laboratory test 03/13/2019 [facility] [place] Magnesium 2.3 mg/dL Normal 1.9-2.[address] [place] [address] [phone] Creatine Kinase(CK) 164 U/L Normal 10-223 Troponin-I (TnI) 0.00 ng/mL <0.04 5 CKMB 03/13/2019 [facility] [place] CKMB 2.2 ng/mL Normal 0.6-6.[address] ng/[place] [address] [phone] Laboratory test 03/13/2019 [facility] [place] TSH 0.59 Normal 0.34- 5.[address] (Thyroid mcIU/[place] [address] Stim Horm) [phone] 1 Troponin-I testing on Plasma Separator Tubes (PST) has a known false positive rate of 0.20-0.40%. All positive troponins reflex immediately to secondary confirmatory testing. Using the [employer] DxI 800 Access Immunoassay systems, the 99th percentile upper reference limit was demonstrated to be < 0.03 ng/mL. 2 Standard intensity warfarin therapeutic range: 2.0-3.0 High intensity warfarin therapeutic range: 2.5-3.5 3 [facility] Severe Sepsis and Septic Shock Management Bundle Measure requires all lactic acids initially measuring >2.0 mmol/L be repeated. 4 Because ethnic data is not always readily available, this report includes an eGFR for both -Americans and non- Americans. The National Kidney Disease Education Program (NKDEP) does not endorse the use of the MDRD equation for patients that are not between the ages of 18 and 70, are , have extremes of body size, muscle mass, or nutritional status, or are non- or non-. According to the National Kidney Foundation, irrespective of diagnosis, the stage of the disease is based on the level of kidney function: Stage Description GFR(mL/min/1.73 m(2)) 1 Kidney damage with normal or decreased GFR 90 2 Kidney damage with mild decrease in GFR 60-89 3 Moderate decrease in GFR 30-59 4 Severe decrease in GFR 15-29 5 Kidney failure <15 (or dialysis) 5 Troponin-I testing on Plasma Separator Tubes (PST) has a known false positive rate of 0.20-0.40%. All positive troponins reflex immediately to secondary confirmatory testing. Using the [employer] DxI 800 Access Immunoassay systems, the 99th percentile upper reference limit was demonstrated to be < 0.03 ng/mL. Procedures Description No Information Available Medical Devices Description No Information Available Encounters Description No Information Available Assessments Description No Information Available Plan of Treatment No Information Available Functional Status Description No Information Available Mental Status Description No Information Available Referrals Description No Information Available
[2019-09-29 09:14] LABS: ALT 34 U/L (7-52); AST 23 U/L (13-39); Albumin 4.2 g/dL (3.2-5.2); Albumin/Globulin Ratio 1.3 (1-3); Alkaline Phosphatase 70 U/L (34-104); Anion Gap 7 mmol/L (2-11); BUN/Creatinine Ratio 18.8 (8-20); Blood Urea Nitrogen 19 mg/dL (6-24); CO2 Carbon Dioxide 27 mmol/L (22-32); Calcium 9.8 mg/dL (8.6-10.3); Chloride 105 mmol/L (101-111); EGFR Non-African American 78.5 (>60); Globulin 3.3 g/dL (2-4); Glucose 104 mg/dL (70-100); Magnesium 2.2 mg/dL (1.9-2.7); Potassium 4.3 mmol/L (3.5-5.0); Sodium 139 mmol/L (135-145); Total Protein 7.5 g/dL (6.4-8.9)
[2019-09-29 09:15] LABS: Troponin I 0.01 ng/mL (<0.03)
[2019-09-29 09:26] LABS: Alcohol < 10 mg/dL (<10)
[2019-09-29 09:41] LABS: TSH (Thyroid Stimulating Horm) 0.94 mcIU/mL (0.34-5.60)
[2019-09-29] MEDS ORDERED: Metoprolol Tartrate IV* 1 MG/ML 5 ML VIAL IV ONE (09:43)
--- NOTE | 2019-09-29 12:23 | CONS ---
CC: Dr. Rangel Ramos * CONSULTATION REPORT: DATE OF CONSULT: 09/29/19 REASON FOR CONSULT: Symptomatic paroxysmal AFib. ATTENDING FAMILY SERVICE ASSISTANT: Dr. Jon Castro * (DICTATED BY GELACIO ROSS NP) PRIMARY FAMILY SERVICE ASSISTANT: Historically, Dr. Rangel Ramos. CHIEF COMPLAINT: Heart racing, palpitations. HISTORY OF PRESENT ILLNESS: This is a pleasant 49-year-old male patient who historically followed Dr. Rangel Ramos of our practice due to notable history of symptomatic paroxysmal AFib initially diagnosed in 2016, at that time he underwent successful transesophageal echocardiogram cardioversion. He also has a history of familial hypercholesterolemia, not on medical therapy; mild obstructive sleep apnea, family history of premature coronary artery disease. The patient states he has been in his usual state of health. His last episode of symptomatic AFib was in March of 2019, which was provoked due to alcohol per patient. He states he has been otherwise clinically doing well. He was on Xarelto 20 mg a day for approximately 4 to 6 weeks after cardioversion in March 2019 and has not been anticoagulated since. He states historically he would take Xarelto as needed. Apparently he was at a friend's house yesterday watching a football game and had consumed several alcohol beverages. He states he was stable and asymptomatic; however at 0400 today, he woke up with a sensation of his heart racing. He palpated his carotid pulse and it was noted to be irregular. He waited several hours; however, symptoms were ongoing, so he presented to [facility] for further evaluation. While being evaluated in the emergency department, he was noted to be in AFib with rapid ventricular rate response, heart rate 139 beats per minute with associated minimal inferolateral ST-segment depression. Given notable history of paroxysmal AFib, we were asked to see the patient in consultation for consideration of cardioversion. At this current time, he reports sensation of heart racing and irregularity. His serum alcohol level was less than 10. His electrolytes were normal. Renal function was normal and TSH was normal. Again, he has not been anticoagulated since approximately April 2019. He states that in the past he was very sensitive to AFib and he is aware of when he is out of rhythm. Denies any other recent illness or infection. Last echocardiogram via transesophageal echocardiogram, 11/24/16; per report, LVEF 55% to 60%. No thrombus visualized, left atrial appendage, mild mitral regurgitation, trace tricuspid insufficiency. No dilatation of ascending aorta. PAST MEDICAL HISTORY: 1. Paroxysmal AFib diagnosed in 2017. 2. Reported familial hyperlipidemia 3. Mild obstructive sleep apnea. 4. Family history of premature cardiovascular disease. PAST SURGICAL HISTORY: Includes: 1. Left hand surgery. 2. Cardioversion 11/24/16. 3. Cardioversion in March 2019. HOME MEDICATIONS: None. Please note patient has been off Xarelto since April 2019 and is not adherent with Lipitor therapy. ALLERGIES: Reported PENICILLIN. Please note he developed hypotension with DILTIAZEM in the past. FAMILY HISTORY: Positive for PA at the age of 40 with his brother, otherwise noncontributory. SOCIAL HISTORY: The patient is a former tobacco user, quit 18 years ago. Consumes alcohol socially, but does admit to binge drinking. He is employed as a contractor. He is , lives at home with his . In regards to activity, he remains active with hunting and fishing and his employment. REVIEW OF SYSTEMS: All systems have been reviewed and negative except as above mentioned in the HPI. PHYSICAL EXAM: Pulse 131, respirations 13, oxygenation 90% on room air, blood pressure 122/94. General: The patient is lying in bed upon entering the room, appears in no apparent distress, cooperative with examination. Well-nourished, A&O x3. HEENT: Head is atraumatic, normocephalic. Oral mucosa is moist. Tongue is midline. Neck: Supple. Trachea midline. No JVD. No carotid bruits. Cardiac: Tachycardic. S1, S2. Irregular rate and rhythm. No murmur, rub, or gallop noted. Lungs: Auscultated posteriorly. No evidence of adventitious breath sounds. Respirations are nonlabored. /GI: Abdomen is nontender, nondistended. Normoactive bowel sounds x4. No splenomegaly with palpation. Extremities: No pedal edema. No clubbing or cyanosis. Peripheral Vascular: 2+ brachial and dorsalis pedis pulse palpated bilaterally and symmetrically. DIAGNOSTIC STUDIES/LAB DATA: Blood work reviewed from 09/29/19: White count 7 , hemoglobin 16, hematocrit 47, platelets 263. Sodium 139, potassium 4.3, creatinine 1.01, glucose 104. Serum alcohol less than 10. ECG 09/29/19: AFib, rate [address] segment depression, likely rate related. ASSESSMENT AND PLAN: 1. Symptomatic paroxysmal atrial fibrillation. Currently in atrial fibrillation with rapid ventricular rate, reports palpitations and sensation of heart racing. CHADS-VASc 0, not on anticoagulation. Electrolytes and thyroid function are normal. He has a notable history of atrial fibrillation provoked by ingestion of alcohol. He does report consuming alcohol yesterday evening. It appears that he has been in atrial fibrillation for the past 6 hours. The patient was offered conservative medical therapy with AV any agent and close followup to determine whether or not he self-converts versus elective cardioversion. Risks and benefits of elective cardioversion were reviewed with the patient, including the risk of bradyarrhythmia, hypotension, superficial skin burn, risk of transient ischemic attack, cerebrovascular accident. The patient desires elective cardioversion at this time. Consent to be obtained by Dr. Jon Castro. The patient is aware that he will need to be anticoagulated post cardioversion and is agreeable to Xarelto 20 mg a day. Prescription was sent to [facility]. He will need close followup appointment with primary patient educator, Dr. Rangel Ramos. I discussed at length the importance of avoidance of alcohol consumption. On his prior sleep study, he had mild sleep apnea. He states that he had successfully lost 20 pounds; however, over the holidays, he did gain weight again. 2. History of familial hyperlipidemia. Last LDL assessment was according to our medical records 04/29/17, at that time LDL was 236. He was historically on statin therapy. He states he will discuss reinitiating statin therapy at his followup appointment with Dr. Ramos. Please note he has a family history of premature cardiovascular disease in first-degree relative. 3. History of mild obstructive sleep apnea, treated conservatively through weight loss. 4. Disposition. Pending course. The patient is full code. Dr. Jon Castro has personally seen and examined the patient and agrees with the above assessment and plan. GELACIO ROSS NP [id number]/[facility] #: [id number] JOANA
[2019-09-29] MEDS ORDERED: fentaNYL* 50 MCG/ML 2 ML VIAL (100 MCG VIAL) ONE ×2 (12:43→13:20)
[2019-09-29] MEDS ORDERED: Midazolam* 1 MG/ML 5 ML VIAL (5 MG) ONE ×2 (12:43→13:19)
[2019-09-29] MEDS ORDERED: Propofol* 10 MG/ML 20 ML BTL ONE ×2 (12:43→13:20)
[2019-09-29 15:00] VITALS: BP 105/71
--- NOTE | 2019-09-29 15:15 | CARD ---
CC: Dr. Rangel Ramos * DATE OF PROCEDURE: 09/29/2019 - EMERGENCY DEPT PROCEDURE PERFORMED: Cardioversion. INDICATION: Atrial fibrillation. HISTORY OF PRESENT ILLNESS: The patient is a 49-year-old gentleman with a history of paroxysmal atrial fibrillation. His last episode was in March of this year. The patient states that he awoke this morning at 4:30 in the morning with onset of tachycardia and irregular heartbeat consistent with his atrial fibrillation. He came to the emergency room. He was found to be in atrial fibrillation. Laboratory studies were normal. PROCEDURE: The patient was in a fasting state. Informed consent had been obtained prior to the procedure. Anesthesia was monitored by Anesthesiology, Dr. Thornton. The patient was cardioverted with 150 joules of synchronized biphasic energy. The patient converted to normal sinus rhythm. The patient tolerated the procedure with no complications. The patient will be sent home on anticoagulation. He will follow-up with Dr. Ramos. [id number]/[facility] #: [id number] JOANA
== END 2019-09-29 14:50 | disposition home or self-care (01) ==
LOC: ED 08:24
DX: I48.91 Unspecified atrial fibrillation (principal); I10 Essential (primary) hypertension; E78.5 Hyperlipidemia, unspecified; Z88.0 Allergy status to penicillin; Z88.8 Allergy status to other drugs, medicaments and biological substances; Z82.49 Family history of ischemic heart disease and other diseases of the circulatory system; Z87.891 Personal history of nicotine dependence
CPT/HCPCS: 36415; 80053; 80320; 83735; 84443; 84484; 85025; 92960; 93005; 96361; 96374; 99156; 99282; G0480; J2250; J2704; J3010; J3490